=== PATIENT | male | born 1965 | race Caucasian/White ===

== ENCOUNTER 2016-07-08 06:35 | Day surgery (SDC) | payer MEDICARE, OTHER ==
[2016-07-06 10:59] VITALS: BMI 34.4
[~2016-07-08 06:35] MED LIST: LACTATED RINGERS 1,000 ML IV SCH
[2016-07-08 07:17] VITALS: RESP 18; TEMP 98.1
[2016-07-08 07:32] LABS: Glucose,Whole Blood 185 mg/dL (75-99)
[2016-07-08] MEDS ORDERED: PROPOFOL 10 MG/ML 20 ML VIAL IV ONE (07:51)
[2016-07-08] MEDS ORDERED: MIDAZOLAM 2 MG/2 ML VIAL ONE (07:51)
[2016-07-08] MEDS ORDERED: LIDOCAINE 1% INJ 10MG/ML (20 ML MDV) ONE (07:51)
--- NOTE | 2016-07-08 07:57 | P.GSHP ---
History of Present Illness H&P Date: 07/08/16 Chief Complaint: Screening colonoscopy This a 51-year-old male referred from Dr. alvarenga. Patient presents today for screening colonoscopy. He denies a significant GI complaints. He's never had a colonoscopy before. 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 History of Any Multi-Drug Resistant Organisms: None Reported Past Surgical History: Back Surgery, Orthopedic Surgery, Tonsillectomy Additional Past Surgical History / Comment(s): Varicose thuy removal, Spinal fusion with rods, screws, cage, Laminectomy. Rt. thumb tumor removal. Past Anesthesia/Blood Transfusion Reactions: Motion Sickness Past Psychological History: No Psychological Hx Reported Smoking Status: Current some day smoker Past Alcohol Use History: Occasional Additional Past Alcohol Use History / Comment(s): Current social smoker 1-2 cigs /month; formerly 1/2 ppd since age 10yo, stopped Qd use in 2005. Past Drug Use History: Marijuana Additional Drug Use History / Comment(s): No use of medical marijuana for 2 months per pt. - Past Family History Mother Family Medical History: Vascular Disorder Additional Family Medical History / Comment(s): varicose viens. Medications and Allergies Home Medications Medication Instructions Recorded Confirmed Type Cyclobenzaprine [Flexeril] 10 mg PO HS 07/06/16 07/08/16 History Diclofenac Potassium [Cataflam] 50 mg PO BID 07/06/16 07/08/16 History Eszopiclone 3 mg PO HS 07/06/16 07/08/16 History Lisinopril [Zestril] 20 mg PO QAM 07/06/16 07/08/16 History Morphine Sulfate [Morphine Sulfate 15 mg PO 07/06/16 History ER] Morphine Sulfate [Ms Contin] 60 mg PO QAM 07/06/16 07/08/16 History Pregabalin [Lyrica] 100 mg PO TID 07/06/16 07/08/16 History Saw [place] 900 mg PO BID 07/06/16 History metFORMIN HCL [Glucophage] 500 mg PO BID 07/06/16 07/08/16 History Allergies Allergy/AdvReac Type Severity Reaction Status Date / Time venom-honey bee Allergy Dyspnea, Verified 07/06/16 10:34 seizure Surgical - Exam Vital Signs Temp Pulse Resp BP Pulse Ox 98.1 F 71 18 129/81 99 07/08/16 07:15 07/08/16 07:15 07/08/16 07:15 07/08/16 07:15 07/08/16 07:15 - General well developed, no distress - Eyes PERRL - ENT normal pinna - Neck no masses - Respiratory normal expansion - Cardiovascular Rhythm: regular - Abdomen Abdomen: soft, non tender Results - Labs Abnormal Lab Results - Last 24 Hours (Table) 07/08/16 Range/Units 07:15 POC Glucose (mg/dL) 185 H (75-99) mg/dL Assessment and Plan Plan: 51-year-old male. We'll perform initial screening colonoscopy.
--- NOTE | 2016-07-08 08:13 | P.OP ---
Date of Procedure: 07/08/16 Preoperative Diagnosis: Screening colonoscopy Postoperative Diagnosis: Diverticulosis Procedure(s) Performed: Colonoscopy Anesthesia: MAC Surgeon: Ron Maradiaga Pathology: none sent Condition: stable Disposition: PACU Description of Procedure: The patient's placed on the endoscopy table in the lateral position. He received IV sedation. Digital rectal exam was performed which revealed no abnormalities. The prostate was symmetric without nodules. The flexible colonoscope was then placed patient anus and passed throughout the entire colon. The ileocecal valve was visualized. The cecum and ascending colon appeared normal. In the descending; was mild diverticular changes. Scope was brought back the rectum and this appeared normal. Scope was then drawn for patient.
[2016-07-08 09:37] VITALS: BP 108/70; PULSE 65
== END 2016-07-08 09:46 | disposition home or self-care (01) ==
LOC: ORWHC2ENDO 06:35
PROVIDERS: ATTEND Surgery
DX: Z12.11 Encounter for screening for malignant neoplasm of colon (principal); K57.30 Diverticulosis of large intestine without perforation or abscess without bleeding; E11.9 Type 2 diabetes mellitus without complications; Z79.84 Long term (current) use of oral hypoglycemic drugs; I10 Essential (primary) hypertension; F17.210 Nicotine dependence, cigarettes, uncomplicated; Z79.899 Other long term (current) drug therapy; Z91.030 Bee allergy status
CPT/HCPCS: J2250; J2001; J2704; G0121; 99153

== ENCOUNTER → 2016-08-06 | Outpatient (CLI) | payer MEDICARE, OTHER ==
[2016-08-06 09:31] LABS: Blood Urea Nitrogen 23 mg/dL (9-20); Non-African American GFR(MDRD) >60 (>60 ml/min/1.73 sqM)
--- NOTE | 2016-08-06 12:03 | MR ---
EXAMINATION TYPE: MR lumbar spine wo/w con DATE OF EXAM: 08/06/2016 11:00 AM COMPARISON: NONE HISTORY: Radiculophy, prior lumbar surgery TECHNIQUE: Multiplanar, multisequence images of the lumbar spine were acquired utilizing 20 mL intravenous Multi Hanna gadolinium contrast. Diffusion weighted imaging was performed. L1-L2: Mild decreased signal ossified compatible disc desiccation. Mild posterior disc bulge without herniation, protrusion or central stenosis. Foramina are patent bilaterally. L2-L3: Mild decreased signal ossified compatible disc desiccation. Mild posterior disc bulge without herniation, protrusion or central stenosis. Foramina are patent bilaterally. L3-L4: Mild decreased signal ossified compatible disc desiccation. Mild posterior disc bulge without herniation, protrusion or central stenosis. Foramina are patent bilaterally. L4-L5: Postoperative changes of fusion with the pedicular screws in place. Alignment is anatomic. Dec ompressive laminectomy. No evidence for recurrent or residual disease. Moderate disc desiccation iden tified. L5-S1: Moderate disc desiccation with left paracentral disc bulge and annular tear. Intermittent left foraminal lateral recess stenosis difficult to exclude. No evidence for central stenosis. Lumbar segments are intact. No paraspinal masses are identified. Conus medullaris has a normal appe arance. Large left renal cystic lesion with internal septations. Consider ultrasound correlation. IMPRESSION: 1 multilevel degenerative disc disease and disc bulging. 2. Postoperative changes on the L4-5 without evidence for recurrent or residual disease. 3. Left paracentral annular tear with disc bulge and may result in left lateral recess stenosis. Ray elate clinically.
== END | disposition home or self-care (01) ==
LOC: RADMRIMAIN 08:50
PROVIDERS: ATTEND Pain Medicine Interventional Pain Medicine
DX: M51.16 Intervertebral disc disorders with radiculopathy, lumbar region (principal); Z98.890 Other specified postprocedural states
CPT/HCPCS: 82565; 84520; 72158; 36415; A9577

== ENCOUNTER → 2022-04-10 | Outpatient (CLI) | payer MEDICARE, OTHER ==
[2022-04-10 22:53] LABS: HCT 40.4 % (39.6-50.0); HGB 13.2 g/dL (13.0-17.0); MCH 29.5 pg (27.0-32.0); MCHC 32.7 g/dL (32.0-37.0); MCV 90.4 fL (80.0-97.0); Mean Platelet Volume 9.5 fL (9.5-12.2); NRBC Per 100 WBC 0 /100 WBCS (0.0-0.0); Platelet Count 311 X 10*3/uL (140-440); RBC 4.47 X 10*6/uL (4.40-5.60)
[2022-04-10 23:29] LABS: African American GFR (CKD) 103.4 (60.0-200.0); Albumin 4.1 g/dL (3.8-4.9); Albumin/Globulin Ratio 1.42 (1.60-3.17); Anion Gap 10.7 mmol/L (10.00-18.00); BUN/Creat Ratio 21.26 Ratio (12.00-20.00); Blood Urea Nitrogen 20.3 mg/dL (9.0-27.0); Calcium 9.3 mg/dL (8.7-10.3); Carbon Dioxide 25.2 mmol/L (20.0-27.5); Globulin 2.9 g/dL (1.6-3.3); Non-African American GFR(CKD) 89.2 (60.0-200.0); Total Bilirubin 0.2 mg/dL (0.30-1.20); Total Protein 6.9 g/dL (6.2-8.2)
[2022-04-10 23:44] LABS: Urine Creatinine 70.3 mg/dL (39.0-259.0)
== END | disposition home or self-care (01) ==
LOC: LABWHC1 15:10
PROVIDERS: ATTEND Family Medicine Adult Medicine
DX: E11.9 Type 2 diabetes mellitus without complications (principal); E78.2 Mixed hyperlipidemia; E55.9 Vitamin D deficiency, unspecified
CPT/HCPCS: 36415; 80053; 82043; 82306; 82570; 83036; 84443; 85027

== ENCOUNTER 2022-05-05 11:22 | Emergency (ER) | payer OTHER, MEDICARE ==
[2022-05-05 11:39] VITALS: BP 174/100; PULSE 85; RESP 20; TEMP 98.2
[2022-05-05] MEDS ORDERED: HYDROcodone/APAP 7.5-325MG 1 EACH TAB PO ONE (11:53)
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
== END 2022-05-05 13:27 | disposition home or self-care (01) ==
LOC: EC 11:22 → SUPCPDRO 11:22 → EC 13:27
DX: M54.2 Cervicalgia (principal); E11.9 Type 2 diabetes mellitus without complications; I10 Essential (primary) hypertension; F17.200 Nicotine dependence, unspecified, uncomplicated; F12.90 Cannabis use, unspecified, uncomplicated; Z91.030 Bee allergy status; Z79.84 Long term (current) use of oral hypoglycemic drugs; Z79.899 Other long term (current) drug therapy; V43.52XA Car driver injured in collision with other type car in traffic accident, initial encounter
CPT/HCPCS: 70450; 72125; 99284

== ENCOUNTER 2024-07-30 20:37 | Emergency (ER) | payer MEDICARE, OTHER ==
[2024-07-30 20:50] VITALS: RESP 16
[2024-07-30 20:55] LABS: Glucose,Whole Blood 400 mg/dL (70-110)
[2024-07-30] MEDS: SODIUM CHLORIDE 0.9% 1,000 ML IV STA (21:09)
--- NOTE | 2024-07-30 21:11 | ED ---
Recheck HPI - General Chief Complaint: Recheck/Abnormal Lab/Rx Stated Complaint: weakness Time Seen by Provider: 07/30/24 20:51 Source: patient, RN notes reviewed Mode of arrival: ambulatory Limitations: no limitations - History of Present Illness Initial Comments: This is a 59-year-old male with history of DM presenting with elevated blood glucose x 3 days. Patient endorses associated fatigue but has otherwise had normal oral fluid intake and output. Endorses running out of of metformin 500 mg twice daily prior to seeing his PCP. Denies ALOC, AMS polydipsia, polyuria, dysuria, hematuria. - Related Data Home Medications Medication Instructions Recorded Confirmed Cyclobenzaprine [Flexeril] 10 mg PO HS 07/06/16 07/08/16 Diclofenac Potassium [Cataflam] 50 mg PO BID 07/06/16 07/08/16 Eszopiclone 3 mg PO HS 07/06/16 07/08/16 Morphine Sulfate [Morphine Sulfate 15 mg PO 07/06/16 ER] Morphine Sulfate [Ms Contin] 60 mg PO QAM 07/06/16 07/08/16 Pregabalin [Lyrica] 100 mg PO TID 07/06/16 07/08/16 Saw [place] 900 mg PO BID 07/06/16 lisinopriL [Zestril] 20 mg PO QAM 07/06/16 07/08/16 metFORMIN HCL [Glucophage] 500 mg PO BID 07/06/16 07/08/16 Previous Rx's Medication Instructions Recorded metFORMIN HCL [Glucophage] 500 mg PO BID #60 tab 07/30/24 Allergies Allergy/AdvReac Type Severity Reaction Status Date / Time venom-honey bee Allergy Dyspnea, Verified 07/30/24 20:50 seizure Review of Systems ROS Statement: Those systems with pertinent positive or pertinent negative responses have been documented in the HPI. ROS Other: All systems not noted in ROS Statement are negative. 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 History of Any Multi-Drug Resistant Organisms: None Reported Past Surgical History: Back Surgery, Orthopedic Surgery, Tonsillectomy Additional Past Surgical History / Comment(s): Varicose thuy removal, Spinal fu kisha with rods, screws, cage, Laminectomy. Rt. thumb tumor removal. Past Anesthesia/Blood Transfusion Reactions: Motion Sickness Past Psychological History: No Psychological Hx Reported Smoking Status: Current some day smoker Past Alcohol Use History: Occasional Past Drug Use History: Marijuana - Past Family History Mother Family Medical History: Vascular Disorder Additional Family Medical History / Comment(s): varicose viens. General Exam Limitations: no limitations General appearance: alert, in no apparent distress Head exam: Present: atraumatic, normocephalic, normal inspection Eye exam: Present: normal appearance, PERRL, EOMI. Absent: scleral icterus, conjunctival injection, periorbital swelling ENT exam: Present: normal exam, mucous membranes moist Neck exam: Present: normal inspection. Absent: tenderness, meningismus, lymphadenopathy Respiratory exam: Present: normal lung sounds bilaterally. Absent: respiratory distress, wheezes, rales, rhonchi, stridor Cardiovascular Exam: Present: regular rate, normal rhythm, normal heart sounds. Absent: systolic murmur, diastolic murmur, rubs, gallop, clicks GI/Abdominal exam: Present: soft, distended, tenderness (Diffuse tenderness with high-pitched tympanic sounds noted), normal bowel sounds. Absent: guarding, rebound, rigid, mass, pulsatile mass, hernia Extremities exam: Present: normal inspection, full ROM, normal capillary refill. Absent: tenderness, pedal edema, joint swelling, calf tenderness Back exam: Present: normal inspection Neurological exam: Present: alert, oriented X3, CN II-XII intact Psychiatric exam: Present: normal affect, normal mood Skin exam: Present: warm, dry, intact, normal color. Absent: rash Course Vital Signs 07/30/24 20:47 Temperature 99.4 F Pulse Rate 84 Respiratory 16 Rate Blood Pressure 162/96 O2 Sat by Pulse 99 Oximetry Medical Decision Making - Medical Decision Making Was pt. sent in by a medical professional or institution (, PA, HERD TESTER, urgent care, hospital, or group home...) When possible be specific @ -No Did you speak to anyone other than the patient for history (EMS, parent, family, police, friend...)? What history was obtained from this source @ -Patient's provided portion of HPI Did you review nursing and triage notes (agree or disagree)? Why? @ -I reviewed and agree with nursing and triage notes Were old charts reviewed (outside hosp., previous admission, EMS record, old EKG, old radiological studies, urgent care reports/EKG's, group home records)? Report findings @ -No old charts were reviewed Differential Diagnosis (chest pain, altered mental status, abdominal pain women, abdominal pain men, vaginal bleeding, weakness, fever, dyspnea, syncope, headache, dizziness, GI bleed, back pain, seizure, CVA, palpatations, mental health, musculoskeletal)? @ -Differential Altered Mental Status: Hypoglycemia, DKA, hypercapnia, ETOH, overdose, CO poisoning, trauma, myxedema coma, HTN encephalopathy, infection, encephalitis, psychosis, intercranial hemorrhage, hepatic encephalopathy, meningitis, CVA, this is not meant to be an all-inclusive list EKG interpreted by me (3pts min.). @ -Not done X-rays interpreted by me (1pt min.). @ -None done CT interpreted by me (1pt min.). @ -None done U/S interpreted by me (1pt. min.). @ -None done What testing was considered but not performed or refused? (CT, X-rays, U/S, labs)? Why? @ -None What meds were considered but not given or refused? Why? @ -None Did you discuss the management of the patient with other professionals (professionals i.e. , PA, HERD TESTER, lab, RT, psych nurse, criminal justice social worker, it security consulting director, teacher, grants officer, casework specialist)? Give summary @ -No Was smoking cessation discussed for >3mins.? @ -No Was critical care preformed (if so, how long)? @ -No Were there social determinants of health that impacted care today? How? (Homelessness, low income, unemployed, alcoholism, drug addiction, transportati on, low edu. Level, literacy, decrease access to med. care, penitentiary, rehab)? @ -No Was there de-escalation of care discussed even if they declined (Discuss DNR or withdrawal of care, Hospice)? DNR status @ -No What co-morbidities impacted this encounter? (DM, HTN, Smoking, COPD, CAD, Cancer, CVA, ARF, Chemo, Hep., AIDS, mental health diagnosis, sleep apnea, morbid obesity)? @ -DM Was patient admitted / discharged? Hospital course, mention meds given and route, prescriptions, significant lab abnormalities, going to OR and other pertinent info. @ -Lab work shows hyponatremia (126), stable CKD, hyperglycemia (358) and the glycosuria. Patient provided IV normal saline bolus and 12 units NovoLog SQ. Patient states he is feeling much better and will follow-up with PCP on Wednesday. Metformin sent to patient's pharmacy. Discussed patient with Dr. Thompson. Undiagnosed new problem with uncertain prognosis? @ -No Drug Therapy requiring intensive monitoring for toxicity (Heparin, Nitro, Insulin, Cardizem)? @ -No Were any procedures done? @ -No Diagnosis/symptom? @ -Hyperglycemia Acute, or Chronic, or Acute on Chronic? @ -Acute Uncomplicated (without systemic symptoms) or Complicated (systemic symptoms)? @ -Complicated Side effects of treatment? @ -No Exacerbation, Progression, or Severe Exacerbation? @ -Exacerbation Poses a threat to life or bodily function? How? (Chest pain, [place], [place], pneumonia, PE, COPD, DKA, ARF, appy, cholecystitis, CVA, Diverticulitis, Homicidal, Suicidal, threat to staff... and all critical care pts) @ -No - Lab Data Result diagrams: 07/30/24 21:10 07/30/24 21:10 Lab Results 07/30/24 07/30/24 07/30/24 Range/Units 20:54 21:10 21:10 WBC 4.8 (3.8-10.6) k/uL RBC 4.78 (4.30-5.90) m/uL Hgb 14.5 (13.0-17.5) gm/dL Hct 41.9 (39.0-53.0) % MCV 87.5 (80.0-100.0) fL MCH 30.4 (25.0-35.0) pg MCHC 34.7 (31.0-37.0) g/dL RDW 13.0 (11.5-15.5) % Plt Count 220 (150-450) k/uL MPV 8.5 Neutrophils % 63 % Lymphocytes % 24 % Monocytes % 8 % Eosinophils % 1 % Basophils % 1 % Neutrophils # 3.0 (1.3-7.7) k/uL Lymphocytes # 1.2 (1.0-4.8) k/uL Monocytes # 0.4 (0-1.0) k/uL Eosinophils # 0.0 (0-0.7) k/uL Basophils # 0.0 (0-0.2) k/uL Sodium 126 L (137-145) mmol/L Potassium 4.3 (3.5-5.1) mmol/L Chloride 93 L (98-107) mmol/L Carbon Dioxide 27 (22-30) mmol/L Anion Gap 6 mmol/L BUN 33 H (9-20) mg/dL Creatinine 0.94 (0.66-1.25) mg/dL Est GFR (CKD-EPI)AfAm >90 (>60 ml/min/1.73 sqM) Est GFR (CKD-EPI)NonAf 89 (>60 ml/min/1.73 sqM) Glucose 358 H (74-99) mg/dL POC Glucose (mg/dL) 400 H (70-110) mg/dL POC Glu Ore Crushing Dust Collector ID Dean Marci Calcium 8.2 L (8.4-10.2) mg/dL Phosphorus 3.3 (2.5-4.5) mg/dL Total Bilirubin 0.5 (0.2-1.3) mg/dL AST 35 (17-59) U/L ALT 52 H (4-49) U/L Alkaline Phosphatase 84 (38-126) U/L Total Protein 6.0 L (6.3-8.2) g/dL Albumin 3.3 L (3.5-5.0) g/dL Urine Color Urine Appearance (Clear) Urine pH (5.0-8.0) Ur Specific [place] (1.001-1.035) Urine Protein (Negative) Urine Glucose (UA) (Negative) Urine Ketones (Negative) Urine Blood (Negative) Urine Nitrite (Negative) Urine Bilirubin (Negative) Urine Urobilinogen (<2.0) mg/dL Ur Leukocyte Esterase (Negative) Urine RBC (0-5) /hpf Urine WBC (0-5) /hpf Ur Squamous Epith Cells (0-4) /hpf Hyaline Casts (0-2) /lpf Urine Mucus (None) /hpf 07/30/24 07/30/24 Range/Units 21:41 22:09 WBC (3.8-10.6) k/uL RBC (4.30-5.90) m/uL Hgb (13.0-17.5) gm/dL Hct (39.0-53.0) % MCV (80.0-100.0) fL MCH (25.0-35.0) pg MCHC (31.0-37.0) g/dL RDW (11.5-15.5) % Plt Count (150-450) k/uL MPV Neutrophils % % Lymphocytes % % Monocytes % % Eosinophils % % Basophils % % Neutrophils # (1.3-7.7) k/uL Lymphocytes # (1.0-4.8) k/uL Monocytes # (0-1.0) k/uL Eosinophils # (0-0.7) k/uL Basophils # (0-0.2) k/uL Sodium (137-145) mmol/L Potassium (3.5-5.1) mmol/L Chloride (98-107) mmol/L Carbon Dioxide (22-30) mmol/L Anion Gap mmol/L BUN (9-20) mg/dL Creatinine (0.66-1.25) mg/dL Est GFR (CKD-EPI)AfAm (>60 ml/min/1.73 sqM) Est GFR (CKD-EPI)NonAf (>60 ml/min/1.73 sqM) Glucose (74-99) mg/dL POC Glucose (mg/dL) 342 H (70-110) mg/dL POC Glu Ore Crushing Dust Collector ID Maeve Miller Calcium (8.4-10.2) mg/dL Phosphorus (2.5-4.5) mg/dL Total Bilirubin (0.2-1.3) mg/dL AST (17-59) U/L ALT (4-49) U/L Alkaline Phosphatase (38-126) U/L Total Protein (6.3-8.2) g/dL Albumin (3.5-5.0) g/dL Urine Color Light Yellow Urine Appearance Clear (Clear) Urine pH 5.5 (5.0-8.0) Ur Specific [place] 1.029 (1.001-1.035) Urine Protein 1+ H (Negative) Urine Glucose (UA) 4+ H (Negative) Urine Ketones Negative (Negative) Urine Blood Trace H (Negative) Urine Nitrite Negative (Negative) Urine Bilirubin Negative (Negative) Urine Urobilinogen <2.0 (<2.0) mg/dL Ur Leukocyte Esterase Negative (Negative) Urine RBC 1 (0-5) /hpf Urine WBC 1 (0-5) /hpf Ur Squamous Epith Cells <1 (0-4) /hpf Hyaline Casts 2 (0-2) /lpf Urine Mucus Rare H (None) /hpf Disposition Clinical Impression: Encounter for medication refill, Hyperglycemia due to type 2 diabetes mellitus Disposition: HOME SELF-CARE Condition: Good Prescriptions: metFORMIN HCL [Glucophage] 500 mg PO BID #60 tab Is patient prescribed a controlled substance at d/c from ED?: No Referrals: Martha Cook MD [Primary Care Provider] - 1-2 days Time of Disposition: 22:43
[2024-07-30] MEDS: INSULIN ASPART (NovoLOG) 100 UNIT/ML VIAL SQ ONE (21:13)
[2024-07-30 21:30] LABS: Basophils % (A) 1 %; Eosinophils % (A) 1 %; HCT 41.9 % (39.0-53.0); HGB 14.5 gm/dL (13.0-17.5); Lymphocytes # (A) 1.2 k/uL (1.0-4.8); Lymphocytes % (A) 24 %; MCH 30.4 pg (25.0-35.0); MCHC 34.7 g/dL (31.0-37.0); MCV 87.5 fL (80.0-100.0); Mean Platelet Volume 8.5; Monocytes # (A) 0.4 k/uL (0-1.0); Monocytes % (A) 8 %; Neutrophils % (A) 63 %; Platelet Count 220 k/uL (150-450); RBC 4.78 m/uL (4.30-5.90); WBC 4.8 k/uL (3.8-10.6)
[2024-07-30 21:58] LABS: Appearance,Urine Clear (Clear); Bilirubin,Urine Negative (Negative); Blood,Urine Trace (Negative); Color,Urine Light Yellow; Glucose,Urine (UA) 4+ (Negative); Hyaline Casts,Urine 2 /lpf (0-2); Ketones,Urine Negative (Negative); Leukocyte Esterase,Urine Negative (Negative); Mucus,Urine Rare /hpf; Nitrite,Urine Negative (Negative); PH, Urine 5.5 (5.0-8.0); Protein,Urine 1+ (Negative); RBC,Urine 1 /hpf (0-5); Specific Gravity,Urine 1.029 (1.001-1.035); Squamous Epithelial Cell,Urine <1 /hpf (0-4); Urobilinogen,Urine <2.0 mg/dL (<2.0); WBC,Urine 1 /hpf (0-5)
[2024-07-30 22:10] LABS: Glucose,Whole Blood 342 mg/dL (70-110)
[2024-07-30 22:36] LABS: ALT 52 U/L (4-49); AST 35 U/L (17-59); African American GFR (CKD) >90 (>60 ml/min/1.73 sqM); Albumin 3.3 g/dL (3.5-5.0); Alkaline Phosphatase 84 U/L (38-126); Anion Gap 6 mmol/L; Blood Urea Nitrogen 33 mg/dL (9-20); Calcium 8.2 mg/dL (8.4-10.2); Carbon Dioxide 27 mmol/L (22-30); Chloride 93 mmol/L (98-107); Glucose 358 mg/dL (74-99); Non-African American GFR(CKD) 89 (>60 ml/min/1.73 sqM); Phosphorus 3.3 mg/dL (2.5-4.5); Potassium 4.3 mmol/L (3.5-5.1); Sodium 126 mmol/L (137-145); Total Bilirubin 0.5 mg/dL (0.2-1.3)
[2024-07-30 23:00] VITALS: BP 156/88; PULSE 77; TEMP 98.8
== END 2024-07-30 23:02 | disposition home or self-care (01) ==
LOC: EC 20:37
DX: Z76.0 Encounter for issue of repeat prescription (principal); E11.65 Type 2 diabetes mellitus with hyperglycemia; F17.200 Nicotine dependence, unspecified, uncomplicated; Z91.030 Bee allergy status
CPT/HCPCS: 36415; 80053; 81001; 82009; 84100; 85025; 99284